=== PATIENT | male | born 1955 | race Caucasian/White ===

== ENCOUNTER → 2016-12-14 | Outpatient (REF) | LOC: ZLAB.WCH 15:17 | DX: Z01.89 Encounter for other specified special examinations (principal) | CPT/HCPCS: G0103 ==

== ENCOUNTER → 2018-06-26 | Outpatient (REF) ==
[2018-06-26 10:18] LABS: PSA-TOTAL 1.34 ng/mL (0-4)
[2018-06-26 10:57] LABS: THYROID STIMULATING HORMONE 3.7 uIU/mL (0.465-4.680)
== END ==
LOC: ZLAB.WCH 09:29
PROVIDERS: Internal Medicine
DX: Z01.89 Encounter for other specified special examinations (principal)
CPT/HCPCS: G0103